=== PATIENT | female | born 1965 | race African-American/Black ===

== ENCOUNTER 2017-04-07 18:55 | Emergency (ER) | payer OTHER ==
[2017-04-07 19:05] VITALS: BP 130/90; PULSE 90; TEMP 98.6; BMI 39.4
[2017-04-07] MEDS ORDERED: CLINDAMYCIN HCL 150 MG CAPSULE (FP) ONE (20:26)
[2017-04-07] MEDS ORDERED: CLINDAMYCIN HCL 300 MG CAPSULE PO ONE (20:28)
--- NOTE | 2017-04-07 20:49 | PDOC ---
History of Present Illness - General Chief Complaint: Wound Infection Stated Complaint: BITE Time Seen by Provider: 04/07/17 20:16 History Source: Patient Exam Limitations: No Limitations - History of Present Illness Initial Comments: 04/07/17 21:20 Patient is a 51-year-old female history of GERD, presents emergency department for evaluation of lesion, to right lateral lower extremity. Patient reports that she woke up with a fluid-filled blister to the leg hit it against the bucket and it opened was filled with white discharge now area is erythematous around and painful. Denies any fever, no aches. No CP or SOB. Past Medical History: GERD. Allergies: PCN Medications: See medication list Family History: Non-contributory Social History: Denies smoking, alcohol use, or IVDU Review of Systems GENERAL/CONSTITUTIONAL: No fever or chills. No weakness. No weight change. HEAD, EYES, EARS, NOSE AND THROAT: No change in vision. No ear pain or discharge. No sore throat. CARDIOVASCULAR: No chest pain or shortness of breath. RESPIRATORY: No cough, wheezing, or hemoptysis. GASTROINTESTINAL: No nausea, vomiting, diarrhea or constipation. No rectal bleeding. GENITOURINARY: No dysuria, frequency, or change in urination. MUSCULOSKELETAL: No joint or muscle swelling or pain. No neck or back pain. SKIN : There is a 2 cm open weeping lesion to right lateral lower leg with surrounding erythema, no fluctuance. NEUROLOGIC: No headache, vertigo, loss of consciousness, or loss of sensation. Physical Exam: GENERAL: The patient is awake, alert, and fully oriented, in no acute distress. EYES: Pupils equal, round and reactive to light, extraocular movements intact, sclera anicteric, conjunctiva clear. ENT: Ears normal, nares patent, oropharynx clear without exudates. Moist mucous membranes. No uvula deviation NECK: Normal range of motion, supple without lymphadenopathy, JVD, or masses. LUNGS: Breath sounds equal, clear to auscultation bilaterally. No wheezes, and no crackles. HEART: Regular rate and rhythm, normal S1 and S2 without murmur, rub or gallop. ABDOMEN: Soft, nontender, normoactive bowel sounds. No guarding, no rebound. No masses. No bruising or abrasions MUSCULOSKELETAL: Normal range of motion, no edema. No clubbing or cyanosis. No cords, erythema, or tenderness. No CVA Tenderness with fist. SKIN: Warm, Dry, normal turgor, no rashes . There is a 2 cm open wound to right lateral lower leg with surrounding erythema, no warmth, mildly indurated area measuring approximately 14 cm in length and 8 cm in width. Area marked with a surgical pen. No streaking. No lymphadenopathy. 04/07/17 21:24 Past History - Past Medical History Allergies/Adverse Reactions: Allergies Allergy/AdvReac Type Severity Reaction Status Date / Time Penicillins Allergy Verified 04/07/17 19:05 Home Medications: Ambulatory Orders Clindamycin HCl [Cleocin HCl] 300 mg PO TID #30 capsule 04/07/17 Ibuprofen [Motrin -] 600 mg PO QID #28 tablet 04/07/17 Mupirocin Cream [Bactroban 2% Cream -] 1 applic TP BID #1 tube 04/07/17 Omeprazole 20 mg PO ASDIR 04/07/17 - Suicide/Smoking/Psychosocial Hx Smoking History: Never smoked Have you smoked in the past 12 months: No Information on smoking cessation initiated: No Hx Alcohol Use: No Drug/Substance Use Hx: No Substance Use Type: None *Physical Exam - Vital Signs Last Vital Signs Temp Pulse Resp BP Pulse Ox 98.6 F 90 18 130/90 100 04/07/17 19:03 04/07/17 19:03 04/07/17 19:03 04/07/17 19:03 04/07/17 19:03 ED Treatment Course - Medications Given in the ED: ED Medications Discontinued Medications Generic Name Dose Route Start Last Admin Trade Name Los PRN Reason Stop Dose Admin Clindamycin HCl 300 mg 04/07/17 20:28 04/07/17 20:45 Cleocin - PO 04/07/17 20:29 300 mg ONCE ONE Administration Medical Decision Making - Medical Decision Making 04/07/17 21:24 A/P: Patient here for evaluation of wound to right lateral lower extremity bug bite versus MRSA lesion, culture sent. Clindalycin 300 mg by mouth times one given, area marked with a surgical pen patient to monitor closely for any increased redness past the area. If any increased pain, redness, streaking, or any other concerns Patient to return immediately to ER. I have discussed treatment plan with the patient we will DC on clindamycin and Bactroban patient to come back in 2 days for wound evaluation of area does not appear to be improving. To call [phone] in one week for results of culture *DC/Admit/Observation/Transfer Diagnosis at time of Disposition: Lesion of soft tissue of lower leg and ankle - Discharge Dispostion Disposition: HOME Condition at time of disposition: Good Admit: No - Prescriptions Prescriptions: Mupirocin Cream [Bactroban 2% Cream -] 1 applic TP BID #1 tube Clindamycin HCl [Cleocin HCl] 300 mg PO TID #30 capsule Ibuprofen [Motrin -] 600 mg PO QID #28 tablet - Referrals Referrals: Dallin Murray [Primary Care Provider] - - Patient Instructions Printed Discharge Instructions: DI for Wound Infection Additional Instructions: Please monitor area for any increased redness, swelling, or signs of infection Increased redness or streaking from areas please return immediately to emergency department Can follow-up in 2 days for wound evaluation if there is a concern or area is not improving. Please apply Bactroban twice a day to leg, make sure to cleanse thoroughly prior to application Please call [phone] in one week for results of culture - Post Discharge Activity Forms/Work/School Notes: Back to Work
[2017-04-07] MEDS ORDERED: IBUPROFEN 400 MG TABLET (FP) PO ONE ×2 (20:55→20:56)
== END 2017-04-07 21:33 | disposition home or self-care (01) ==
LOC: JERFT 18:55
DX: L98.8 Other specified disorders of the skin and subcutaneous tissue (principal)
CPT/HCPCS: 87070; 87186; 87205; 99281-25